=== PATIENT | female | born 1975 | race Caucasian/White ===

== ENCOUNTER → 2023-07-01 13:44 | Outpatient (REF) | payer OTHER, SELFPAY | LOC: HWRAD 13:44 | PROVIDERS: ATTENDING PHYSICIAN Family Medicine | DX: R93.5 Abnormal findings on diagnostic imaging of other abdominal regions, including retroperitoneum (principal) | CPT/HCPCS: 74177; Q9967 ==

== ENCOUNTER → 2023-07-23 08:48 | Outpatient (REF) | payer OTHER, SELFPAY | LOC: RAD 08:48 | PROVIDERS: ATTENDING PHYSICIAN Internal Medicine Gastroenterology; FAMILY PHYSICIAN Family Medicine | DX: R93.5 Abnormal findings on diagnostic imaging of other abdominal regions, including retroperitoneum (principal) | CPT/HCPCS: 74246; 74248 ==

== ENCOUNTER → 2023-08-09 06:39 | Day surgery (SDC) | payer OTHER, SELFPAY | LOC: GI 06:39 | PROVIDERS: ATTENDING PHYSICIAN Internal Medicine Gastroenterology; FAMILY PHYSICIAN Family Medicine | DX: R93.3 Abnormal findings on diagnostic imaging of other parts of digestive tract (principal); K57.30 Diverticulosis of large intestine without perforation or abscess without bleeding; K64.8 Other hemorrhoids; K31.89 Other diseases of stomach and duodenum; K31.7 Polyp of stomach and duodenum; H50.40 Unspecified heterotropia; K29.50 Unspecified chronic gastritis without bleeding; I89.0 Lymphedema, not elsewhere classified | CPT/HCPCS: 45378; 43239; 88305; 88342 ==

== ENCOUNTER 2023-12-24 06:21 | Day surgery (SDC) | payer OTHER, SELFPAY ==
[2023-12-24 10:14] VITALS: BMI 25.0
[2023-12-24 10:17] VITALS: BMI 25.0
[2023-12-24 10:29] VITALS: BP 127/76
[2023-12-24 12:45] VITALS: BP 102/74
[2023-12-24 13:00] VITALS: BP 122/83
== END 2023-12-24 13:11 | disposition home or self-care (01) ==
LOC: SDS 06:21
PROVIDERS: ATTENDING PHYSICIAN Internal Medicine Gastroenterology
DX: K31.7 Polyp of stomach and duodenum (principal)
CPT/HCPCS: 43251; 88305; 88313